=== PATIENT | male | born 1995 | race Caucasian/White ===

== ENCOUNTER 2020-02-06 04:41 | Emergency (ER) | payer SELFPAY ==
[~2020-02-06] VITALS: Ht 185.4 cm; Wt 137.6 kg
[2020-02-06 04:47] VITALS: Ht 185.4 cm; Wt 137.6 kg
[2020-02-06 08:23] VITALS: BP 124/69
== END 2020-02-06 08:23 | disposition home or self-care (01) ==
LOC: ED 04:41
DX: R51 Headache (principal); R11.0 Nausea
CPT/HCPCS: J1885; J2765; J7030